=== PATIENT | female | born 1975 | race Caucasian/White ===

== ENCOUNTER 2016-10-02 18:39 | Emergency (ER) | payer BC ==
[2016-10-02 19:08] VITALS: BP 139/83
[2016-10-02] MEDS ORDERED: Ketorolac 30 MG/ML SDV IM ONE (20:08)
--- NOTE | 2016-10-02 20:12 | EDM.PDOC ---
ED HPI GENERAL MEDICAL PROBLEM - General Chief Complaint: Lower Extremity Injury/Pain Stated Complaint: FELL AND HURT KNEE Time Seen by Provider: 10/02/16 20:03 Source of Information: Reports: Patient History Limitations: Reports: No Limitations - History of Present Illness INITIAL COMMENTS - FREE TEXT/NARRATIVE: This 41 yo female patient reports to the ED with left medial knee pain. The patient reports she stepped on her leg wrong and fell. Since the incident, the patient has experienced increased left knee pain and has not been able to walk on the knee due to increased pain. 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 [No Known Home Meds] 10/02/16 [History] Past Medical History - Past Health History Medical/Surgical History: Denies Medical/Surgical History Social & Family History - Tobacco Use Smoking Status *Q: Current Some Day Smoker Years of Tobacco use: 20 Packs/Tins Daily: 0.2 Used Tobacco, but Quit: No Second Hand Smoke Exposure: No - Caffeine Use Caffeine Use: Reports: Coffee, Soda - Recreational Drug Use Recreational Drug Use: No Review of Systems - Review of Systems Review Of Systems: ROS reveals no pertinent complaints other than HPI. ED EXAM, GENERAL - Physical Exam Exam: See Below Exam Limited By: No Limitations General Appearance: Alert, WD/WN, Moderate Distress Eye Exam: Bilateral Eye: EOMI, Normal Inspection, PERRL Ears: Normal External Exam Nose: Normal Inspection, Normal Mucosa, No Blood Throat/Mouth: Normal Inspection, Normal Lips, Normal Teeth Head: Atraumatic, Normocephalic Neck: Normal Inspection, Full Range of Motion Respiratory/Chest: No Respiratory Distress Cardiovascular: Normal Peripheral Pulses, Regular Rate, Rhythm (Female) Exam: Deferred Rectal (Female) Exam: Deferred Back Exam: Normal Inspection, Full Range of Motion, NT Extremities: No Pedal Edema, Normal Capillary Refill, Joint Swelling (left knee) , Leg Pain (left medial knee), Limited Range of Motion (left knee) Neurological: Alert, Oriented, CN II-XII Intact, Normal Cognition, Normal Gait, Normal Reflexes, No Motor/Sensory Deficits Psychiatric: Normal Affect, Normal Mood Skin Exam: Warm, Dry, Intact, Normal Color, No Rash Lymphatic: No Adenopathy Course - Vital Signs Last Recorded V/S: Last Vital Signs Temp 37.9 C 10/02/16 19:07 Pulse 72 10/02/16 19:07 Resp 20 10/02/16 19:07 BP 139/83 10/02/16 19:07 Pulse Ox 100 10/02/16 19:07 - Orders/Labs/Meds Orders: Active Orders 24 hr Category Date Time Status Knee 3V Lt [CR] Urgent Exams 10/02/16 19:09 Taken DME for Discharge [COMM] Urgent Oth 10/02/16 20:08 Ordered Meds: Medications Discontinued Medications Generic Name Dose Route Start Last Admin Trade Name Freq PRN Reason Stop Dose Admin Ketorolac Tromethamine 60 mg 10/02/16 20:08 Toradol IM 10/02/16 20:09 ONETIME ONE Departure - Departure Time of Disposition: 20:09 Disposition: Home, Self-Care 01 Condition: fair Clinical Impression: Strain of left knee Qualifiers: Encounter type: initial encounter Qualified Code(s): S86.912A - Strain of unspecified muscle(s) and tendon(s) at lower leg level, left leg, initial encounter - Discharge Information Instructions: Knee Sprain, [id number] Forms: ED Department Discharge Care Plan Goals: The patient was advised of the examination and x-ray results during the visit. The patient was given an injection of Toradol (60 mg) while in the ED. The patient was discharged with a script for Toradol (10 mg) #20 to take 1 by mouth every 6 hours as needed. The patient was placed in a knee immobilizer and given a set of crutches for support. The patient should rest, ice and elevate the knee. If the patient has any additional symptoms or concerns, the patient should follow-up with her primary care facility or return to the emergency department. - My Orders Last 24 Hours: My Active Orders 10/02/16 19:09 Knee 3V Lt [CR] Urgent 10/02/16 20:08 DME for Discharge [COMM] Urgent - Assessment/Plan Last 24 Hours: My Active Orders 10/02/16 19:09 Knee 3V Lt [CR] Urgent 10/02/16 20:08 DME for Discharge [COMM] Urgent
== END 2016-10-02 20:42 | disposition home or self-care (01) ==
LOC: DL.ED 18:39
DX: S86.912A Strain of unspecified muscle(s) and tendon(s) at lower leg level, left leg, initial encounter (principal); F17.210 Nicotine dependence, cigarettes, uncomplicated; W01.0XXA Fall on same level from slipping, tripping and stumbling without subsequent striking against object, initial encounter; Z88.2 Allergy status to sulfonamides
CPT/HCPCS: 73562; 96372; 99283; J1885